=== PATIENT | female | born 1980 | race Caucasian/White ===

== ENCOUNTER 2017-04-21 09:30 | Outpatient (CLI) | payer OTHER ==
--- NOTE | 2017-04-21 18:33 | Ultrasound Report ---
PELVIC ULTRASOUND WITH BOTH TRANSABDOMINAL AND TRANSVAGINAL STUDY: 04/21/2017 CLINICAL HISTORY: A 36-year-old female with secondary oligomenorrhea. TECHNIQUE: Transabdominal pelvic ultrasound performed for global evaluation. Transvaginal pelvic ul trasound performed for detailed evaluation. Real-time scanning performed and static images obtained. Uterus measures 6.6 cm x 3.5 cm x 3.6 cm for a volume of 43.5 mL. Endometrial echo complex is within normal limits measuring 3.6 mL. The cervix and uterine parenchymal pattern are normal. Right ovary measures 3.2 cm x 1.7 cm x 1.9 cm for a volume of 5.4 mL. A few tiny follicular cysts ar e noted in the right ovary. Left ovary measures 2.8 cm x 1.4 cm x 1.9 cm for a volume of 3.9 mL. Tiny follicular cysts are noted within the left ovary. No free fluid is detected in the cul-de-sac. Uterus and both ovaries appear normal both in size and parenchymal pattern. IMPRESSION: NORMAL EXAMINATION. :9 JOB #: [id number] EXT JOB #:[id number]
== END 2017-04-21 09:31 | disposition home or self-care (01) ==
LOC: DI 09:30
PROVIDERS: ATTEND Family Medicine
DX: N91.4 Secondary oligomenorrhea (principal)
CPT/HCPCS: 76830; 76856

== ENCOUNTER → 2017-10-27 | Outpatient (CLI) | payer OTHER | LOC: LAB.R 08:00 | PROVIDERS: ATTEND Family Medicine | DX: N76.0 Acute vaginitis (principal) | CPT/HCPCS: 87480; 87510; 87660 ==

== ENCOUNTER 2020-09-25 09:24 | Outpatient (CLI) | payer BC, OTHER ==
[2020-09-25 14:28] LABS: FOLLICLE STIMULATING HORMONE 0.22 mIU/mL
[2020-09-25 14:31] LABS: LUTEINIZING HORMONE < 0.20 mIU/mL
== END 2020-09-25 23:59 | disposition home or self-care (01) ==
LOC: LAB.WCP 09:24
PROVIDERS: ATTEND Family Medicine
DX: N95.1 Menopausal and female climacteric states (principal); N91.4 Secondary oligomenorrhea
CPT/HCPCS: 36415; 82670; 83001; 83002; 84403; 84443; 84702

== ENCOUNTER 2021-02-08 11:17 | Outpatient (CLI) | payer BC ==
--- NOTE | 2021-02-08 12:58 | Ultrasound Report ---
PROCEDURE: Pelvic w/Transvaginal INDICATIONS: Metrorrhagia TECHNIQUE: Real-time scanning was performed of the pelvic organs, with image documentation. Additional endovagi nal scanning was necessary due to incomplete visualization of the adnexal and endometrial structures by transabdominal scanning. COMPARISON: 04/21/2017. FINDINGS: No pathologic free abdominal or pelvic fluid. Uterus: Uterus is normal in size at 5.9 x 2.3 x 3.8 cm. The endometrium measures 3 mm in combined t hickness. Ovaries: Right ovary measures 1.6 x 1.4 x 2.1 cm. Left ovary measures 2.2 x 2.4 x 1.9 cm. No abnorma l adnexal masses or fluid collections. IMPRESSION: Negative pelvic ultrasound. Reviewed by: Eric Alvarez MD on 02/08/2021 11:57 AM [facility] Approved by: Eric Alvarez MD on 02/08/2021 11:57 AM [facility] Station ID: [id number]
== END 2021-02-08 11:18 | disposition home or self-care (01) ==
LOC: DI 11:17
PROVIDERS: ATTEND Obstetrics & Gynecology
DX: N92.1 Excessive and frequent menstruation with irregular cycle (principal)

== ENCOUNTER 2022-01-07 11:51 | Outpatient (CLI) | payer OTHER ==
[2022-01-07 12:41] LABS: THYROID STIMULATING HORMONE 1.48 uIU/mL (0.34-5.60)
[2022-01-07 12:47] LABS: PROLACTIN 18.62 ng/mL
[2022-01-07 19:57] LABS: ESTIMATED AVERAGE GLUCOSE 111 mg/dL (70-100); HEMOGLOBIN A1c% 5.5 % (4.27-6.07)
== END 2022-01-07 11:52 | disposition home or self-care (01) ==
LOC: LAB 11:51
PROVIDERS: ATTEND Obstetrics & Gynecology
DX: N91.5 Oligomenorrhea, unspecified (principal); N64.3 Galactorrhea not associated with childbirth
CPT/HCPCS: 36415; 81599; 83036; 83520; 84146; 84403; 84443

== ENCOUNTER 2022-03-15 08:00 | Outpatient (CLI) | payer OTHER ==
[2022-03-15 22:36] LABS: BACTERIAL VAGINOSIS DNA NEGATIVE (NEGATIVE); CANDIDA GLABRATA DNA NEGATIVE (NEGATIVE); CANDIDA GROUP DNA POSITIVE (NEGATIVE); CANDIDA KRUSEI DNA NEGATIVE (NEGATIVE); TRICHOMONAS VAGINALIS DNA NEGATIVE (NEGATIVE)
== END 2022-03-15 08:01 | disposition home or self-care (01) ==
LOC: LAB 08:00
PROVIDERS: ATTEND Obstetrics & Gynecology
DX: N89.8 Other specified noninflammatory disorders of vagina (principal)
CPT/HCPCS: 81514